=== PATIENT | male | born 1995 | race African-American/Black ===

== ENCOUNTER → 2023-10-25 | Outpatient (CLI) | payer OTHER ==
[~2023-10-25] MED LIST: ISOVUE-300 61% 100ML VIAL As Ordered ONE; LIDOCAINE 1% MDV 20ML VIAL As Ordered ONE; PROHANCE 279.3MG/ML 5ML VIAL As Ordered ONE
== END ==
LOC: M RAD 06:30
PROVIDERS: ATTEND Physician Assistant
DX: M25.511 Pain in right shoulder (principal); S43.401A Unspecified sprain of right shoulder joint, initial encounter; X58.XXXA Exposure to other specified factors, initial encounter; Y92.9 Unspecified place or not applicable
CPT/HCPCS: 23350; 73223; 77002; A9576; Q9967

== ENCOUNTER 2024-09-23 15:50 | Emergency (ER) | payer OTHER ==
[~2024-09-23] VITALS: Ht 172.7 cm; Wt 88.6 kg
[2024-09-23 15:53] VITALS: TEMP 98.5
[2024-09-23 19:13] VITALS: BP 131/69; O2SAT 100
== END 2024-09-23 20:24 | disposition home or self-care (01) ==
LOC: M ED 15:50
DX: S80.11XA Contusion of right lower leg, initial encounter (principal); S63.601A Unspecified sprain of right thumb, initial encounter; M25.461 Effusion, right knee; J45.909 Unspecified asthma, uncomplicated; Z91.048 Other nonmedicinal substance allergy status; Y92.9 Unspecified place or not applicable; Y93.61 Activity, american tackle football; Y99.1 Military activity